=== PATIENT | male | born 2000 | race Caucasian/White ===

== ENCOUNTER 2024-06-06 10:52 | Day surgery (SDC) | payer OTHER ==
[~2024-06-06] VITALS: Ht 177.8 cm; Wt 104.4 kg
[~2024-06-06 10:52] MED LIST: LR 1,000 ML IV SCH; Meclizine 25 MG TAB PO SCH
[2024-06-06] MEDS ORDERED: Lidocaine PF 2% (20 MG/ML) 5 ML VIAL ONE (11:31)
[2024-06-06] MEDS ORDERED: NS 10 ML IV ONE (11:32)
[2024-06-06 12:09] VITALS: BP 140/77; PULSE 83; TEMP 98.5
[2024-06-06] MEDS ORDERED: fentaNYL 50 MCG/ML 2 ML VIAL ONE (13:25)
[2024-06-06] MEDS ORDERED: dexAMETHasone 10 MG/ML VIAL ONE (13:25)
[2024-06-06] MEDS ORDERED: Ondansetron 4 MG/2 ML VIAL ONE (13:25)
[2024-06-06] MEDS ORDERED: Iohexol 350 - 100 ML VIAL URETER-B ONE (13:31)
[2024-06-06] MEDS ORDERED: HYDROmorphone 1 MG/1 ML SYRINGE [PACU/SDC ONLY] IV PRN (14:00)
[2024-06-06] MEDS ORDERED: Meperidine 50 MG/ML 1 ML VIAL IV PRN (14:00)
[2024-06-06] MEDS ORDERED: fentaNYL 50 MCG/ML 1 ML SYRINGE/VIAL [PACU/SDC ONLY] IV PRN (14:00)
[2024-06-06] MEDS ORDERED: Ondansetron 4 MG/2 ML VIAL IV PRN ×2 (14:00→14:15)
[2024-06-06] MEDS ORDERED: Naloxone 0.4 MG/ML VIAL IV PRN (14:15)
[2024-06-06] MEDS ORDERED: Acetaminophen 325 MG TAB PO PRN (14:15)
[2024-06-06] MEDS ORDERED: Hyoscyamine 0.125 MG Sublingual TAB SL PRN (14:15)
[2024-06-06 14:25] VITALS: BP 146/85; PULSE 80; TEMP 97.5
[2024-06-06 14:35] VITALS: TEMP 98.7
[2024-06-06 14:40] VITALS: BP 136/74; PULSE 88
[2024-06-06 14:55] VITALS: BP 137/82; PULSE 88
[2024-06-06] MEDS ORDERED: Acetaminophen 500 MG TAB PO SCH (15:01)
--- NOTE | 2024-06-06 15:15 | NUR ---
1425 RETURNS TO ROOM 7 PER CART. AWAKE, ALERT. RESP UNLABORED. HOB ELEVATED 60 DEGREES. VITAL SIGNS OBTAINED. ABD SOFT. DENIES PAIN OR URINARY URGENCY 1440 AMBULATES TO BATHROOM WITH STAND BY ASSIST. ADMITS TO VOIDING WITHOUT DIFFICULTY, WITH SLIGHT BURNING PRESENT 1450 TOLERATES PO JUICE AND MUFFIN WITHOUT NAUSEA. DISCHARGE INSTRUCTIONS REVIEWED. PATIENT VERBALIZES UNDERSTANDING. COPY PROVIDED IN DISCHARGE FOLDER 5778 DRESSES SELF
== END 2024-06-06 15:15 | disposition home or self-care (01) ==
LOC: SDCO 10:52
DX: N35.812 Other bulbous urethral stricture, male (principal); R31.0 Gross hematuria
CPT/HCPCS: J0690; J1100; J2405; J2704; J3010; J7120; Q9967